=== PATIENT | male | born 1975 | race Caucasian/White ===

== ENCOUNTER 2020-11-26 16:36 | Inpatient (IN) | payer OTHER ==
[~2020-11-26] VITALS: Ht 188 cm; Wt 128.2 kg
--- NOTE | 2020-11-26 17:04 | NUR ---
PT C/O INCREASING SOB OVER LAST COUPLE WEEKS. PT SENT FROM [facility]. PT CONNECTED TO MONITORING. CALL LIGHT IN REACH. ERPA AT BEDSIDE FOR ASSESSMENT.
[2020-11-26 17:30] LABS: BASOPHILS % (AUTO) 1 % (0-1); EOSINOPHILS % (AUTO) 3 % (1-7); LYMPHOCYTES % (AUTO) 25 % (22-44); MEAN CORPUSCULAR HEMOGLOBIN 30.3 pg (27.5-34.5); MEAN CORPUSCULAR HGB CONC 35.4 g/dL (33.2-36.2); MEAN PLATELET VOLUME 8.1 fL (7.4-10.4); MONOCYTES % (AUTO) 7 % (2-9); NEUTROPHILS % (AUTO) 64 % (42-75); PLATELET COUNT 209 x10^3/uL (130-400); RED BLOOD COUNT 5.58 x10^6/uL (4.38-5.82)
[2020-11-26 17:32] LABS: MD NO
[2020-11-26 17:39] LABS: ALANINE AMINOTRANSFERASE 27 U/L (12-78); ALBUMIN 3.9 g/dL (3.4-5.0); ANION GAP 4 mmol/L (5-15); CALCIUM 8.5 mg/dL (8.5-10.1); CHLORIDE 114 mmol/L (98-107); CREATININE 1.09 mg/dL (0.7-1.3)
[2020-11-26 17:43] LABS: ALKALINE PHOSPHATASE 53 U/L (45-117); BILIRUBIN,TOTAL 0.8 mg/dL (0.2-1.0); TOTAL PROTEIN 6.8 g/dL (6.4-8.2); TROPONIN I 0.023 ng/mL (0.000-0.045)
[2020-11-26] MEDS ORDERED: FUROSEMIDE 20 MG/2 ML IV SCH (18:30)
[2020-11-26] MEDS ORDERED: SODIUM CHLORIDE FLUSH 10ML SYR IVF ONE (18:30)
[2020-11-26] MEDS ORDERED: ASPIRIN 81 MG TABLET CHEW PO ONE (18:30)
[2020-11-26] MEDS ORDERED: FUROSEMIDE 20 MG/2 ML IV ONE (18:30)
[2020-11-26] MEDS ORDERED: ASPIRIN 81 MG TABLET CHEW ONE (19:03)
[2020-11-26] MEDS ORDERED: FUROSEMIDE 20 MG/2 ML ONE (19:03)
--- NOTE | 2020-11-26 19:13 | NUR ---
PIV PLACED. MEDS ADMIN PER SEP. HOSPITALIST AT BEDSIDE.
--- NOTE | 2020-11-26 19:21 | NUR ---
REPORT GIVEN TO VERONA OROZCO. PT RTG TO ROOM [id number]
[2020-11-26 19:50] VITALS: BP 135/79
[2020-11-26] MEDS ORDERED: ENALAPRILAT 1.25 MG/ML, 2ML IVPush PRN (20:30)
[2020-11-26] MEDS ORDERED: DOCUSATE 100 MG CAPSULE PO PRN (20:30)
[2020-11-26] MEDS: HEPARIN 5,000 UNITS/ML, 1ML SQ SCH (22:18)
[2020-11-26 23:25] LABS: TROPONIN I 0.026 ng/mL (0.000-0.045)
[2020-11-27 01:12] VITALS: BP 140/82
[2020-11-27 05:15] LABS: ANION GAP 5 mmol/L (5-15); CALCIUM 8.5 mg/dL (8.5-10.1); CHLORIDE 111 mmol/L (98-107); CHOLESTEROL, TOTAL 184 mg/dL (140-239); CREATININE 1.09 mg/dL (0.7-1.3); TRIGLYCERIDES 134 mg/dL (50-200); VLDL CHOLESTEROL 27 mg/dL (0-25)
[2020-11-27 05:19] LABS: CHOL/HDL RATIO 5.1; HDL CHOL % 20 % (26-37); HDL CHOLESTEROL (DIRECT) 36 mg/dL (40-60); LDL CHOLESTEROL,CALCULATED 121 mg/dL (54-169); LDL/HDL RATIO 3.4 (0.5-3.0); TROPONIN I 0.032 ng/mL (0.000-0.045)
[2020-11-27 05:20] LABS: BASOPHILS % (AUTO) 1 % (0-1); EOSINOPHILS % (AUTO) 4 % (1-7); LYMPHOCYTES % (AUTO) 32 % (22-44); MEAN CORPUSCULAR HEMOGLOBIN 29.8 pg (27.5-34.5); MEAN PLATELET VOLUME 8.5 fL (7.4-10.4); MONOCYTES % (AUTO) 8 % (2-9); NEUTROPHILS % (AUTO) 54 % (42-75); PLATELET COUNT 196 x10^3/uL (130-400); RED BLOOD COUNT 5.36 x10^6/uL (4.38-5.82); RED CELL DISTRIBUTION WIDTH 13.3 % (9.4-14.8)
[2020-11-27 05:21] LABS: MD NO
[2020-11-27] MEDS: HEPARIN 5,000 UNITS/ML, 1ML SQ SCH ×3 (05:26→22:31)
[2020-11-27] MEDS: ASPIRIN 81 MG TABLET EC PO SCH (05:26)
[2020-11-27] MEDS: FUROSEMIDE 20 MG/2 ML IV SCH ×2 (07:56→17:56)
[2020-11-27] MEDS ORDERED: FUROSEMIDE 40 MG/4 ML IV ONE (09:30)
[2020-11-27 09:32] VITALS: BP 115/73
[2020-11-27 10:32] LABS: FREE T4 (FREE THYROXINE) 1.24 ng/dL (0.76-1.46)
[2020-11-27] MEDS: LISINOPRIL 5 MG TABLET PO SCH (10:40)
[2020-11-27] MEDS ORDERED: ACETAMINOPHEN 325 MG TABLET PO PRN (13:30)
[2020-11-27 14:08] VITALS: BP 110/79
[2020-11-27] MEDS: CARVEDILOL 3.125 MG TABLET PO SCH (17:49)
[2020-11-27 20:00] VITALS: BP 112/74
[2020-11-27] MEDS: MELATONIN 5 MG TABLET PO PRN (22:31)
[2020-11-27] MEDS: ATORVASTATIN 10 MG TABLET PO SCH (22:31)
[2020-11-28 00:52] VITALS: BP 111/78
[2020-11-28] MEDS: HEPARIN 5,000 UNITS/ML, 1ML SQ SCH ×3 (06:14→22:20)
[2020-11-28 07:28] VITALS: BP 129/88
[2020-11-28] MEDS: FUROSEMIDE 20 MG/2 ML IV SCH ×2 (08:08→09:46)
[2020-11-28] MEDS: LISINOPRIL 5 MG TABLET PO SCH (08:09)
[2020-11-28] MEDS: CARVEDILOL 3.125 MG TABLET PO SCH ×2 (08:10→21:00)
[2020-11-28] MEDS: ASPIRIN 81 MG TABLET EC PO SCH (08:11)
[2020-11-28] MEDS ORDERED: SODIUM CHLORIDE 0.9% 1,000 ML IV SCH (11:00)
[2020-11-28] MEDS ORDERED: FENTANYL PF 100 MCG/2ML ONE (13:33)
[2020-11-28] MEDS ORDERED: MIDAZOLAM 1 MG/ML, 5ML ONE (13:33)
[2020-11-28] MEDS ORDERED: VERAPAMIL 2.5 MG/ML, 2ML ONE (13:33)
[2020-11-28] MEDS ORDERED: LIDOCAINE-MPF 1%, 5ML ONE (13:34)
[2020-11-28] MEDS ORDERED: HEPARIN 1,000 UNITS/ML, 10ML ONE (13:34)
[2020-11-28] MEDS ORDERED: PHENYLEPHRINE 10 MG/ML ONE (14:28)
[2020-11-28 14:39] VITALS: BP 79/50
[2020-11-28 15:01] VITALS: BP 86/61
[2020-11-28 15:50] VITALS: BP 94/61
[2020-11-28 20:36] VITALS: BP 97/65
[2020-11-28] MEDS: ATORVASTATIN 10 MG TABLET PO SCH (20:58)
[2020-11-28] MEDS: MELATONIN 5 MG TABLET PO PRN (22:26)
[2020-11-29 01:32] VITALS: BP 99/66
[2020-11-29 04:42] LABS: ANION GAP 5 mmol/L (5-15); CALCIUM 8.7 mg/dL (8.5-10.1); CHLORIDE 111 mmol/L (98-107); CREATININE 1.22 mg/dL (0.7-1.3)
[2020-11-29] MEDS: HEPARIN 5,000 UNITS/ML, 1ML SQ SCH ×3 (06:26→22:13)
[2020-11-29] MEDS: ASPIRIN 81 MG TABLET EC PO SCH (06:26)
[2020-11-29] MEDS: CARVEDILOL 3.125 MG TABLET PO SCH ×2 (06:26→18:07)
[2020-11-29 07:32] VITALS: BP 93/69
[2020-11-29] MEDS: LISINOPRIL 5 MG TABLET PO SCH (08:51)
[2020-11-29] MEDS: SPIRONOLACTONE 25 MG TABLET PO SCH (08:52)
[2020-11-29 15:11] VITALS: BP 94/64
[2020-11-29 18:06] VITALS: BP 105/71
[2020-11-29] MEDS: ATORVASTATIN 10 MG TABLET PO SCH (20:04)
[2020-11-29] MEDS: MELATONIN 5 MG TABLET PO PRN (22:13)
[2020-11-30 01:15] VITALS: BP 92/64
[2020-11-30 05:09] LABS: BASOPHILS % (AUTO) 1 % (0-1); EOSINOPHILS % (AUTO) 4 % (1-7); LYMPHOCYTES % (AUTO) 33 % (22-44); MEAN CORPUSCULAR HEMOGLOBIN 30.2 pg (27.5-34.5); MEAN CORPUSCULAR HGB CONC 35.1 g/dL (33.2-36.2); MONOCYTES % (AUTO) 9 % (2-9); NEUTROPHILS % (AUTO) 53 % (42-75); PLATELET COUNT 200 x10^3/uL (130-400); RED BLOOD COUNT 5.41 x10^6/uL (4.38-5.82); RED CELL DISTRIBUTION WIDTH 13.1 % (9.4-14.8)
[2020-11-30 05:13] LABS: MD NO
[2020-11-30 05:20] LABS: ANION GAP 4 mmol/L (5-15); CALCIUM 8.6 mg/dL (8.5-10.1); CHLORIDE 110 mmol/L (98-107)
[2020-11-30 05:21] LABS: CREATININE 1.17 mg/dL (0.7-1.3)
[2020-11-30] MEDS: HEPARIN 5,000 UNITS/ML, 1ML SQ SCH ×2 (06:23→14:30)
[2020-11-30] MEDS: CARVEDILOL 3.125 MG TABLET PO SCH (06:24)
[2020-11-30] MEDS: ASPIRIN 81 MG TABLET EC PO SCH (06:24)
[2020-11-30 08:20] VITALS: BP 99/68
[2020-11-30] MEDS: LISINOPRIL 5 MG TABLET PO SCH (09:00)
[2020-11-30 09:24] VITALS: BP 108/71
[2020-11-30] MEDS: SPIRONOLACTONE 25 MG TABLET PO SCH (09:26)
[2020-11-30] MEDS ORDERED: ATOR10TA9 PO (11:25)
[2020-11-30] MEDS ORDERED: CARV3.1212 PO (11:25)
[2020-11-30] MEDS ORDERED: SPIR25TA PO (11:25)
[2020-11-30] MEDS ORDERED: ASPI81TA45 PO (11:25)
[2020-11-30] MEDS ORDERED: LISI5TAB7 PO (13:20)
== END 2020-11-30 16:20 | disposition home or self-care (01) | DRG 281 ==
LOC: ED 18:47 → EDIP 19:04 → 5SO 19:30 → DCLOUNGE 11-30 15:59
PROVIDERS: ADMIT Family Medicine; ATTEND Family Medicine
PROC: 4A023N7 Measurement of Cardiac Sampling and Pressure, Left Heart, Percutaneous Approach (ICD-10-PCS; principal; 2020-11-28)
PROC: B2111ZZ Fluoroscopy of Multiple Coronary Arteries using Low Osmolar Contrast (ICD-10-PCS; 2020-11-28)
PROC: B2151ZZ Fluoroscopy of Left Heart using Low Osmolar Contrast (ICD-10-PCS; 2020-11-28)
DX: I11.0 Hypertensive heart disease with heart failure (principal); I21.A1 Myocardial infarction type 2; I44.2 Atrioventricular block, complete; I37.1 Nonrheumatic pulmonary valve insufficiency; I42.0 Dilated cardiomyopathy; I50.43 Acute on chronic combined systolic (congestive) and diastolic (congestive) heart failure; R09.02 Hypoxemia; E78.5 Hyperlipidemia, unspecified; E03.8 Other specified hypothyroidism; G47.30 Sleep apnea, unspecified; E66.9 Obesity, unspecified; I34.0 Nonrheumatic mitral (valve) insufficiency; Z82.5 Family history of asthma and other chronic lower respiratory diseases; Z82.49 Family history of ischemic heart disease and other diseases of the circulatory system; Z68.37 Body mass index [BMI] 37.0-37.9, adult; Z87.891 Personal history of nicotine dependence
CPT/HCPCS: 36415; 78452; 80048; 80053; 80061; 83735; 83880; 84439; 84443; 84481; 84484; 85025; 93005; 93306; 93458; 96374; 99156; 99157; C1769; G0378; J1644; J2250; J3010; A9502; J1940; J2370; J7030; Q9967

== ENCOUNTER → 2021-02-10 | Outpatient (CLI) | payer OTHER ==
[~2021-02-10] MED LIST: ASPI81TA45 PO; ATOR10TA9 PO; CARV3.1212 PO; LISI5TAB7 PO; SPIR25TA PO
== END | disposition home or self-care (01) ==
LOC: CVU 08:00
PROVIDERS: ATTEND Internal Medicine Cardiovascular Disease
DX: I34.0 Nonrheumatic mitral (valve) insufficiency (principal); I42.0 Dilated cardiomyopathy; I10 Essential (primary) hypertension; I49.3 Ventricular premature depolarization
CPT/HCPCS: 93306